=== PATIENT | male | born 1980 | race Asian ===

== ENCOUNTER → 2025-06-16 | Outpatient (CLI) | payer BC | END | disposition home or self-care (01) | LOC: LAB 13:56 | PROVIDERS: ATTEND Internal Medicine Critical Care Medicine | DX: R05.9 Cough, unspecified (principal) | CPT/HCPCS: 86480 ==

== ENCOUNTER → 2025-06-16 | Outpatient (CLI) | payer BC | END | disposition home or self-care (01) | LOC: RAD 14:07 | PROVIDERS: ATTEND Internal Medicine Critical Care Medicine | DX: R05.9 Cough, unspecified (principal) | CPT/HCPCS: 71045 ==